=== PATIENT | female | born 2000 | race Caucasian/White ===

== ENCOUNTER 2019-09-21 14:01 | Emergency (ER) | payer OTHER ==
[2019-09-21 14:23] VITALS: BMI 24.7
[2019-09-21] MEDS ORDERED: SODIUM CHLORIDE 1,000 ML IV STA (14:25)
--- NOTE | 2019-09-21 14:25 | PDOC ---
Rapid Medical Evaluation Time Seen by Provider: 09/21/19 14:19 Medical Evaluation: 09/21/19 14:20 Pt presents for evaluation after having a syncopal episode. She states she has been feeling weak today and then she passed out in the shower. Pt currently having a miscarriage had D&C 6 days ago. Pt did not hit her head, family member caught her. Also complaining of throat pain and abdominal pain. Exam: Throat non-erythematous, tenderness to palpation of the lower abdomen without focal findings Orders: labs, UA, EKG, IVF Pt to proceed to the ER for further evaluation Discharge Disposition - Diagnosis Syncope Qualifiers: Syncope type: unspecified Qualified Code(s): R55 - Syncope and collapse - Referrals - Patient Instructions - Post Discharge Activity
[2019-09-21 15:14] LABS: BASO % 0.4 % (0-2.0); EOS % 2.1 % (0-4.5); HEMATOCRIT 40.1 % (32.4-45.2); HEMOGLOBIN 13.3 GM/dL (10.7-15.3); LYMPH % 7.5 % (8-40); MCH 27.4 pg (25.7-33.7); MCHC 33.1 g/dl (32.0-36.0); MEAN CELL VOLUME 82.8 fl (80-96); MEAN PLT VOLUME 9.3 fl (7.5-11.1); MONO % 6.8 % (3.8-10.2); NEUT % 83.2 % (42.8-82.8); PLATELET COUNT 207 K/MM3 (134-434); RBC 4.84 M/mm3 (3.60-5.2); RDW 12.5 % (11.6-15.6); WHITE BLOOD COUNT 17.7 K/mm3 (4.0-10.0)
[2019-09-21 15:20] LABS: EPI CELLS 1.5 /HPF (0-5/HPF); HYALINE CASTS 0 /lpf (0-8); PH,URINE 7.5 (5.0-8.0); URINE APPEARANCE CLEAR; URINE BILIRUBIN NEGATIVE (NEGATIVE); URINE COLOR YELLOW; URINE GLUCOSE (UA) NEGATIVE (NEGATIVE); URINE KETONE NEGATIVE (NEGATIVE); URINE LEUK ESTERASE 1+ (NEGATIVE); URINE NITRITE NEGATIVE (NEGATIVE); URINE PROTEIN NEGATIVE (NEGATIVE); URINE RBC 5 /hpf (0-4); URINE WBC 7 /hpf (0-5)
[2019-09-21] MEDS ORDERED: ACETAMINOPHEN 500 MG TABLET (FP) PO ONE (15:50)
--- NOTE | 2019-09-21 15:55 | PDOC ---
History of Present Illness - General Chief Complaint: Weakness Stated Complaint: SYNCOPE Time Seen by Provider: 09/21/19 14:19 - History of Present Illness Initial Comments: Malini Bravo is a 19yo woman with a PMH of asthma, 6 days s/p D&C 2/2 miscarriage at 3mo gestation who presents to the ED after fainting at home today. She states that she had been feeling generally unwell since yesterday with generalized weakness, malaise, nasal congestion, sore throat, and cough. She did not eat today. She went to take a hot shower, and while she was in the shower started to feel that she was going to faint. She alerted her boyfriend, who came and caught her before she fell to the ground. She did not hit her head or sustain any other injury. Her boyfriend splashed her face with cold water, and she woke up and felt at her baseline immediately. Ms Bravo reports that she remembers her boyfriend trying to talk to her but "only heard buzzing" and could not understand him. She came directly to the hospital after waking for additional evaluation. Ms Bravo reports that she has fainted multiple times in the past and was evaluated in the ED at [facility]. She says they always "tell her that nothing is wrong with her" and send her home. She says that every episode of fainting has been when standing up or otherwise changing position. She is not sure whether she was given a reason for the previous fainting episodes. Currently, she reports that she has also been feeling unwell. She has felt weak and has had cough, nasal congestion, and sore throat since yesterday. She also endorses poor PO intake today as she has not been hungry and due to the sore throat. She is concerned that she has strep. She took Nyquil last night for these symptoms. She additionally reports that she has mild suprapubic pain, improved since her D&C, with slight vaginal spotting. Both the pain and bleeding have decreased over the past few days. She says she was told this was expected but that the pain has been bothering her because "they didn't prescribe anything" for her to take at home. She did buy Advil but only took it 1 time yesterday morning. Ms Bravo denies any fevers/chills, nausea, vomiting, change in bowel habits, or urinary symptoms. She endorses frequent nighttime cough, but says this is chronic; she no longer has any asthma medications at home. Past History - Past Medical History Allergies/Adverse Reactions: Allergies Allergy/AdvReac Type Severity Reaction Status Date / Time [place] Allergy Verified 09/21/19 14:20 Home Medications: Ambulatory Orders Albuterol Sulfate Inhaler - [Ventolin HFA Inhaler -] 1 - 2 inh PO Q4H PRN #1 inhaler 09/21/19 Benzocaine/Menthol [Cepacol Sore Throat Lozenge] 1 each MM Q4H PRN #1 box Ibuprofen 600 mg PO Q6H PRN #30 tablet 09/21/19 Inhaler, Assist Devices [Space Chamber Plus] 1 each MC UTDICT #1 spacer COPD: No Other medical history: miscarriage with d/c a week ago - Psycho Social/Smoking Cessation Hx Smoking History: Never smoked Hx Alcohol Use: No Drug/Substance Use Hx: Yes (marijuana) Review of Systems - Review of Systems Comments:: General: No fevers, no chills, no weight or appetite change, + malaise HEENT: No changes in vision, no changes in hearing, + congestion, + sore throat CV: No chest pain, no palpitations, no LE edema Pulm: No SOB, + cough, + wheezing GI: No nausea or vomiting, no change in bowel habits, no melena : No frequency, no urgency, no dysuria. +Suprapubic pain Musc: No back pain, no joint swelling, no recent injury Skin: No rash, no lesions, no erythema Endo: No excessive thirst, no heat/cold intolerance Heme: No unusual bruising or bleeding, no swollen glands Neuro: No syncope, no numbness/tingling, no focal weakness Vasc: No claudication Psych: No recent change in mood, no SI or HI *Physical Exam - Vital Signs Last Vital Signs Temp Pulse Resp BP Pulse Ox 99.6 F 91 H 16 108/62 99 09/21/19 14:20 09/21/19 14:20 09/21/19 14:20 09/21/19 14:20 09/21/19 14:20 - Physical Exam General: Comfortable, no acute distress HEENT: Atraumatic, PERRL, EOMI, MMM, voice normal, normal neck ROM Cards: RRR, no murmur appreciated Pulm: Comfortable on room air, clear to auscultation bilaterally Abd: Soft, nondistended. Minimal suprapubic TTP with deep palpation, no rigidity or guarding. Ext: Atraumatic. No LE edema. ROM intact. WWP Skin: Normal color, no rashes or lesions Neuro: A&Ox3, CN grossly intact, normal speech, motor/sensory grossly intact and symmetric. No focal deficits. Psych: Mood appropriate to situation ED Treatment Course - LABORATORY CBC & Chemistry Diagram: 09/21/19 14:43 09/21/19 14:46 - ADDITIONAL ORDERS Additional order review: Laboratory Results 09/21/19 14:43 Urine Color Yellow Urine Appearance Clear Urine pH 7.5 Ur Specific [place] 1.010 Urine Protein Negative Urine Glucose (UA) Negative Urine Ketones Negative Urine Blood 2+ H Urine Nitrite Negative Urine Bilirubin Negative Urine Urobilinogen 1.0 Ur Leukocyte Esterase 1+ H Urine WBC (Auto) 7 Urine RBC (Auto) 5 Urine Casts (Auto) 0 U Epithel Cells (Auto) 1.5 Urine Bacteria (Auto) 58.0 09/21/19 14:43 RBC 4.84 MCV 82.8 MCHC 33.1 RDW 12.5 MPV 9.3 Neutrophils % 83.2 H Lymphocytes % 7.5 L Monocytes % 6.8 Eosinophils % 2.1 Basophils % 0.4 Medical Decision Making - Medical Decision Making 09/21/19 15:52 Malini Bravo is a 19yo woman with a PMH of asthma, 6 days s/p D&C 2/2 miscarriage at 3mo gestation who presents to the ED after fainting at home today while in a hot shower. She reports a history of several fainting episodes , reportedly with negative workup at [facility]. She additionally reports generalized malaise, weakness, cough, sore throat, and poor PO intake since yesterday as well as improving abdominal pain and vaginal spotting since her D& C. - Unclear whether pt actually fainted as she states she was aware of someone trying to talk to her. If true syncope, most likely orthostatic vs vasovagal. Pt reports poor PO intake due to feeling unwell and had recent procedure, also reports that she was in hot shower and has h/o previous fainting when standing up. - Positive orthostatics on exam w/ increase in HR from 80 to 120, BP decrease from 106/68 to 80/61 when changing from laying supine to standing - Ddx also includes anemia (iron deficiency, acute blood loss). No SOB or pleuritic pain suggesting PE. No BRENNER or neuro symptoms suggesting neurological cause. - Pt denies continued vaginal bleeding after D&C but continued pain. Elevated oral temp, may be febrile (declines rectal temp). Low suspicion for retained products or endometritis but given continued pain will send for TVUS - Generalized weakness may be due to anemia, but suspect influenza or flu-like illness given other respiratory symptoms and elevated temp. Flu test sent as pt has h/o asthma - IVF ordered in [facility]. Pt declines IV placement. Will give PO fluids - Acetaminophen for pain - CBC, CMP, UA, UCx. Very low suspicion for strep pharyngitis as pt has normal pharyngeal exam but rapid strep sent from [facility]. Pending 09/21/19 16:35 - Labs reviewed. No concerning abnormalities - Pt requesting IV fluids as she states that drinking hurts her throat. 18g IV placed in LAC by me. - Plan to send for US to evaluate for retained products following D&C though low suspicion as pt states pain has significantly improved since the procedure, and she now has minimal spotting. 09/21/19 17:06 - US completed, reviewed in ED. No retained products visualized, but radiology report pending 09/21/19 18:13 - US negative for retained products - Pt feeling improved - Will recheck orthostatics, plan to d/c home if orthostatic hypotension resolved - Discussed home care at length with pt. Per request, will give prescription for ibuprofen, benzocaine lozenges, albuterol. Advised that she needs a PMD, will give contact information for [facility]. 09/21/19 19:03 - Signed out to Dr Floyd for the remainder of her ED care Discussed with Dr Roxanna Byrd PGY2 Discharge - Discharge Information Problems reviewed: Yes Clinical Impression/Diagnosis: Syncope Qualifiers: Syncope type: unspecified Qualified Code(s): R55 - Syncope and collapse Condition: Stable - Additional Discharge Information Prescriptions: Albuterol Sulfate Inhaler - [Ventolin HFA Inhaler -] 1 - 2 inh PO Q4H PRN #1 inhaler PRN Reason: Asthma Benzocaine/Menthol [Cepacol Sore Throat Lozenge] 1 each MM Q4H PRN #1 box PRN Reason: Sore Throat Ibuprofen 600 mg PO Q6H PRN #30 tablet PRN Reason: Pain Inhaler, Assist Devices [Space Chamber Plus] 1 each UTDICT #1 spacer - Follow up/Referral Referrals: [facility] at [place] [Provider Group] - Patient Discharge Instructions Patient Printed Discharge Instructions: DI for Viral Upper Respiratory Infection -- Adult Additional Instructions: Discharge Instructions: You were seen in the emergency department for cough, sore throat, and weakness. You had strep and influenza tests sent that were negative. Your symptoms are most likely caused by a viral infection such as the common cold. You should feel better within a week without any additional treatment. You also had an episode of fainting. This is probably due to low blood pressure caused by mild dehydration. Home Care and Follow Up: - Make sure you are drinking plenty of fluids while you are sick. Increase your normal fluid intake. It is OK if you do not feel like eating as long as you are staying well hydrated. Water, pedialyte, soup, juice, popsicles, applesauce, jello, or any other fluids are good choices. - You have been prescribed ibuprofen 600mg that can be taken every 6 hours if needed for pain (abdominal or sore throat). This is the same medication that is in Advil or Motrin. - You may also take acetaminophen (Tylenol) 650-1000mg every 6-8 hours for continued pain. - Consider placing a humidifier in your room overnight to help relieve congestion and reduce drying of your nose and mouth. - Use throat lozenges (cough drops) for sore throat or cough. These have been prescribed, and you can use them every 4 hours. You can buy more at any pharmacy off the shelf. - If you use additional cold medications, make sure they do not contain medicines you are already taking such as acetaminophen or ibuprofen - You should feel better within a week, though cough can sometimes last longer. If you are not feeling better in a week, follow up with your primary doctor. If you need to see a new doctor, you have been referred to the [facility]. - Seek immediate care if you have worsening symptoms, you are unable to stay hydrated, you develop high fevers over 104F that do not come down with medication, or you have any other medical emergency. - Post Discharge Activity
[2019-09-21 16:00] LABS: ALBUMIN 3.9 g/dl (3.4-5.0); BILIRUBIN,TOTAL 0.9 mg/dL (0.2-1); BLOOD UREA NITROGEN 8.3 mg/dL (7-18); CREATININE 0.6 mg/dL (0.55-1.3); POTASSIUM 3.8 mmol/L (3.5-5.1); TOT PROT 7.3 g/dl (6.4-8.2)
[2019-09-21] MEDS ORDERED: ACETAMINOPHEN 500 MG TABLET (FP) ONE (16:06)
--- NOTE | 2019-09-21 16:17 | PDOC ---
Documentation entered by Zohra Martinez SCRIBE, acting as scribe for Martin Mcknight MD. Martin Mcknight MD: This documentation has been prepared by the Juan covarrubias Xhesika, SCRIBE, under my direction and personally reviewed by me in its entirety. I confirm that the documentation accurately reflects all work, treatment, procedures, and medical decision making performed by me. Attending Attestation - Resident Resident Name: RochellePrudence - ED Attending Attestation I have performed the following: I have examined & evaluated the patient, The case was reviewed & discussed with the resident, I agree w/resident's findings & plan, Exceptions are as noted - HPI HPI: 09/21/19 15:42 The patient is a 19 year old female with a significant PMH of asthma and iron deficiency anemia who presents to the emergency department s/p syncopal episode. Pt states she recently had a miscarriage and had D&C 6 days ago at [facility]. Pt denies any vaginal bleeding but endorses lower abdominal cramps. Pt also reports 2 days of sore throat, cough, congestion and generalized malaise. Today, the patient was taking a hot shower when she began to feel faint. Her boyfriend caught her before she hit the ground. Pt denies hitting her head. Boyfriend at bedside states he threw cold water on her face, and the patient returned to baseline. The patient denies chest pain, shortness of breath, headache and dizziness. Denies fever, chills, nausea, vomiting, diarrhea and constipation. Allergies: NKDA - Physicial Exam PE: 09/21/19 15:43 GENERAL: Awake, alert, and fully oriented, in no acute distress. HEAD: No signs of trauma EYES: PERRLA, EOMI, sclera anicteric, conjunctiva clear ENT: Auricles normal inspection, hearing grossly normal, nares patent, oropharynx clear without exudates. Moist mucosa NECK: Nontender, no stepoffs, Normal ROM, supple, no lymphadenopathy, JVD, or masses LUNGS: Breath sounds equal, clear to auscultation bilaterally. No wheezes, and no crackles HEART: Regular rate and rhythm, normal S1 and S2, no murmurs, rubs or gallops ABDOMEN: Soft, nontender, normoactive bowel sounds. No guarding, no rebound. No masses EXTREMITIES: Normal range of motion, no edema. No clubbing or cyanosis. No cords, erythema, or tenderness NEUROLOGICAL: Cranial nerves II through XII intact. 5/5 strength and sensation in all extremities, Normal speech, normal gait, normal cerebellar function SKIN: Warm, Dry, normal turgor, no rashes or lesions noted. - Medical Decision Making 09/21/19 16:20 19 F with syncopal episode. Likely vasovagal vs orthostatic in the setting of URI-like symptoms. Pt with borderline temp in ED. Will evaluate for retained POCs, though pt likely has flu or other viral syndrome. - Labs - Flu swab - TVUS - Fluids, tylenol 09/21/19 17:53 Labs notable for WBC 17, otherwise unremarkable TVUS without evidence of retained POCs Flu swab negative 09/21/19 18:29 Pt reassessed - continues to be orthostatic Will give additional 2L NS IV and reassess 09/21/19 18:43 Pt signed out to oncoming attending Dr. Mercer at 7PM, pending additional fluids and re-evaluation of vitals
--- NOTE | 2019-09-21 19:11 | PDOC ---
*Physical Exam - Vital Signs Last Vital Signs Temp Pulse Resp BP Pulse Ox 99.6 F 96 H 16 105/42 L 99 09/21/19 14:20 09/21/19 18:20 09/21/19 14:20 09/21/19 18:20 09/21/19 14:20 ED Treatment Course - LABORATORY CBC & Chemistry Diagram: 09/21/19 14:43 09/21/19 14:46 - ADDITIONAL ORDERS Additional order review: Laboratory Results 09/21/19 09/21/19 09/21/19 14:46 14:43 14:43 Sodium 136 Potassium 3.8 Chloride 102 Carbon Dioxide 25 Anion Gap 9 BUN 8.3 Creatinine 0.6 Est GFR (CKD-EPI)AfAm 152.08 Est GFR (CKD-EPI)NonAf 131.21 Random Glucose 74 Calcium 9.0 Total Bilirubin 0.9 AST 11 L ALT 23 Alkaline Phosphatase 84 Total Protein 7.3 Albumin 3.9 Urine Color Yellow Urine Appearance Clear Urine pH 7.5 Ur Specific [place] 1.010 Urine Protein Negative Urine Glucose (UA) Negative Urine Ketones Negative Urine Blood 2+ H Urine Nitrite Negative Urine Bilirubin Negative Urine Urobilinogen 1.0 Ur Leukocyte Esterase 1+ H Urine WBC (Auto) 7 Urine RBC (Auto) 5 Urine Casts (Auto) 0 U Epithel Cells (Auto) 1.5 Urine Bacteria (Auto) 58.0 Blood Type B POSITIVE Antibody Screen Negative 09/21/19 14:43 RBC 4.84 MCV 82.8 MCHC 33.1 RDW 12.5 MPV 9.3 Neutrophils % 83.2 H Lymphocytes % 7.5 L Monocytes % 6.8 Eosinophils % 2.1 Basophils % 0.4 - Medications Given in the ED: ED Medications Discontinued Medications Generic Name Dose Route Start Last Admin Trade Name Freq PRN Reason Stop Dose Admin Acetaminophen 1,000 mg 09/21/19 15:50 09/21/19 16:08 Tylenol - PO 09/21/19 15:51 1,000 mg ONCE ONE Administration Sodium Chloride 1,000 mls @ 1,000 mls/hr 09/21/19 14:25 09/21/19 16:08 Normal Saline - IV 09/21/19 15:24 Not Given ASDIR STA Medical Decision Making - Medical Decision Making 09/21/19 19:00 Pt received on sign out from Dr. Byrd. Plan to d/c home after completion of fluids and reassessment of orthostatics. 09/21/19 19:46 Pt s/p D&C 6 days ago. Epigastric TTP on reassessment. Plan to obtain sepsis work up and CT abd/pelv w/ contrast. 09/21/19 20:13 Pt urine positive. Likely due to the fact that she is 6 days s/p D and C. States that she has not had intercourse since the D&C. Will obtain beta hcg quant and sign release for CT abd/pelv. TVUS does not show any . 09/21/19 21:22 CT abd/pelv shows no acute intra abdominal pathology. 09/21/19 22:24 Labs reviewed. Pt reassessed. Pt stable for discharge. All questions answered. Return precautions given. Pt verbalized understanding and agreement with plan. F /u PCP. Laboratory Tests 09/21/19 09/21/19 09/21/19 14:43 14:43 14:43 WBC 17.7 H RBC 4.84 Hgb 13.3 Hct 40.1 MCV 82.8 MCH 27.4 MCHC 33.1 RDW 12.5 Plt Count 207 MPV 9.3 Absolute Neuts (auto) 14.7 H Neutrophils % 83.2 H Lymphocytes % 7.5 L Monocytes % 6.8 Eosinophils % 2.1 Basophils % 0.4 Nucleated RBC % 0 Sodium Potassium Chloride Carbon Dioxide Anion Gap BUN Creatinine Est GFR (CKD-EPI)AfAm Est GFR (CKD-EPI)NonAf Random Glucose Lactic Acid Calcium Total Bilirubin AST ALT Alkaline Phosphatase Total Protein Albumin Beta HCG, Quant Serum , Qual Urine Color Urine Appearance Urine pH Ur Specific [place] Urine Protein Urine Glucose (UA) Urine Ketones Urine Blood Urine Nitrite Urine Bilirubin Urine Urobilinogen Ur Leukocyte Esterase Urine WBC (Auto) Urine RBC (Auto) Urine Casts (Auto) U Epithel Cells (Auto) Urine Bacteria (Auto) Influenza A (Rapid) Influenza B (Rapid) Group A Strep Rapid Negative Blood Type B POSITIVE Antibody Screen Negative 09/21/19 09/21/19 09/21/19 14:43 14:43 14:46 WBC RBC Hgb Hct MCV MCH MCHC RDW Plt Count MPV Absolute Neuts (auto) Neutrophils % Lymphocytes % Monocytes % Eosinophils % Basophils % Nucleated RBC % Sodium 136 Potassium 3.8 Chloride 102 Carbon Dioxide 25 Anion Gap 9 BUN 8.3 Creatinine 0.6 Est GFR (CKD-EPI)AfAm 152.08 Est GFR (CKD-EPI)NonAf 131.21 Random Glucose 74 Lactic Acid Calcium 9.0 Total Bilirubin 0.9 AST 11 L ALT 23 Alkaline Phosphatase 84 Total Protein 7.3 Albumin 3.9 Beta HCG, Quant 667.1 Serum , Qual Positive Urine Color Yellow Urine Appearance Clear Urine pH 7.5 Ur Specific [place] 1.010 Urine Protein Negative Urine Glucose (UA) Negative Urine Ketones Negative Urine Blood 2+ H Urine Nitrite Negative Urine Bilirubin Negative Urine Urobilinogen 1.0 Ur Leukocyte Esterase 1+ H Urine WBC (Auto) 7 Urine RBC (Auto) 5 Urine Casts (Auto) 0 U Epithel Cells (Auto) 1.5 Urine Bacteria (Auto) 58.0 Influenza A (Rapid) Influenza B (Rapid) Group A Strep Rapid Blood Type Antibody Screen 09/21/19 09/21/19 16:00 20:20 WBC RBC Hgb Hct MCV MCH MCHC RDW Plt Count MPV Absolute Neuts (auto) Neutrophils % Lymphocytes % Monocytes % Eosinophils % Basophils % Nucleated RBC % Sodium Potassium Chloride Carbon Dioxide Anion Gap BUN Creatinine Est GFR (CKD-EPI)AfAm Est GFR (CKD-EPI)NonAf Random Glucose Lactic Acid 1.7 Calcium Total Bilirubin AST ALT Alkaline Phosphatase Total Protein Albumin Beta HCG, Quant Serum , Qual Urine Color Urine Appearance Urine pH Ur Specific [place] Urine Protein Urine Glucose (UA) Urine Ketones Urine Blood Urine Nitrite Urine Bilirubin Urine Urobilinogen Ur Leukocyte Esterase Urine WBC (Auto) Urine RBC (Auto) Urine Casts (Auto) U Epithel Cells (Auto) Urine Bacteria (Auto) Influenza A (Rapid) Negative Influenza B (Rapid) Negative Group A Strep Rapid Blood Type Antibody Screen Discharge - Discharge Information Problems reviewed: Yes Clinical Impression/Diagnosis: Syncope Qualifiers: Syncope type: unspecified Qualified Code(s): R55 - Syncope and collapse Condition: Stable - Admission No - Additional Discharge Information Prescriptions: Albuterol Sulfate Inhaler - [Ventolin HFA Inhaler -] 1 - 2 inh PO Q4H PRN #1 inhaler PRN Reason: Asthma Benzocaine/Menthol [Cepacol Sore Throat Lozenge] 1 each MM Q4H PRN #1 box PRN Reason: Sore Throat Ibuprofen 600 mg PO Q6H PRN #30 tablet PRN Reason: Pain Inhaler, Assist Devices [Space Chamber Plus] 1 each UTDICT #1 spacer - Follow up/Referral Referrals: [facility] [place] [Provider Group] - Patient Discharge Instructions Patient Printed Discharge Instructions: DI for Viral Upper Respiratory Infection -- Adult Additional Instructions: Discharge Instructions: You were seen in the emergency department for cough, sore throat, and weakness. You had strep and influenza tests sent that were negative. Your symptoms are most likely caused by a viral infection such as the common cold. You should feel better within a week without any additional treatment. You also had an episode of fainting. This is probably due to low blood pressure caused by mild dehydration. Home Care and Follow Up: - Make sure you are drinking plenty of fluids while you are sick. Increase your normal fluid intake. It is OK if you do not feel like eating as long as you are staying well hydrated. Water, pedialyte, soup, juice, popsicles, applesauce, jello, or any other fluids are good choices. - You have been prescribed ibuprofen 600mg that can be taken every 6 hours if needed for pain (abdominal or sore throat). This is the same medication that is in Advil or Motrin. - You may also take acetaminophen (Tylenol) 650-1000mg every 6-8 hours for continued pain. - Consider placing a humidifier in your room overnight to help relieve congestion and reduce drying of your nose and mouth. - Use throat lozenges (cough drops) for sore throat or cough. These have been prescribed, and you can use them every 4 hours. You can buy more at any pharmacy off the shelf. - If you use additional cold medications, make sure they do not contain medicines you are already taking such as acetaminophen or ibuprofen - You should feel better within a week, though cough can sometimes last longer. If you are not feeling better in a week, follow up with your primary doctor. If you need to see a new doctor, you have been referred to the [facility]. - Seek immediate care if you have worsening symptoms, you are unable to stay hydrated, you develop high fevers over 104F that do not come down with medication, or you have any other medical emergency. - Post Discharge Activity
[2019-09-21 21:58] VITALS: BP 110/65; PULSE 89; TEMP 98.5
--- NOTE | 2019-09-22 14:27 | EKG ---
Test Reason : Blood Pressure : / mmHG Vent. Rate : 084 BPM Atrial Rate : 084 BPM P-R Int : 136 ms QRS Dur : 074 ms QT Int : 334 ms P-R-T Axes : 034 074 031 degrees QTc Int : 394 ms NORMAL SINUS RHYTHM NORMAL ECG NO PREVIOUS ECGS AVAILABLE Confirmed by FRANK HINTON MD ([id number]) on 09/22/2019 2:27:25 PM Referred By: Confirmed By:FRANK HINTON MD
== END 2019-09-21 22:23 | disposition home or self-care (01) ==
LOC: JER 14:01
DX: R55 Syncope and collapse (principal); Z91.018 Allergy to other foods; J45.909 Unspecified asthma, uncomplicated
CPT/HCPCS: 36415; 71045-TC-FY; 74177-TC; 76830-TC; 80053; 81003; 83605; 84702; 84703; 85025; 86850; 86900; 86901; 87040; 87070; 87086; 87804; 87880; 93005; 93010; 99284-25; Q9967

== ENCOUNTER 2020-03-22 16:08 | Emergency (ER) | payer OTHER ==
[2020-03-22 16:16] VITALS: BP 117/75; PULSE 75; TEMP 97.9; BMI 25.5
[2020-03-22] MEDS ORDERED: ACETAMINOPHEN 325 MG TABLET (FP) PO ONE (16:32)
[2020-03-22] MEDS ORDERED: ACETAMINOPHEN 325 MG TABLET (FP) ONE (16:36)
--- NOTE | 2020-03-22 16:40 | PDOC ---
History of Present Illness - General Chief Complaint: Back Pain Stated Complaint: FALLS- BACK PAIN Time Seen by Provider: 03/22/20 16:16 History Source: Patient Exam Limitations: No Limitations Past History - Travel History Traveled outside of the country in the last 30 days: No Close contact w/someone who was outside of country & ill: No - Medical History Allergies/Adverse Reactions: Allergies Allergy/AdvReac Type Severity Reaction Status Date / Time jacinto Allergy Verified 03/22/20 16:18 Home Medications: Ambulatory Orders Albuterol Sulfate Inhaler - [Ventolin HFA Inhaler -] 1 - 2 inh PO Q4H PRN #1 inhaler 09/21/19 Benzocaine/Menthol [Cepacol Sore Throat Lozenge] 1 each MM Q4H PRN #1 box 09/21/19 Ibuprofen 600 mg PO Q6H PRN #30 tablet 09/21/19 Inhaler, Assist Devices [Space Chamber Plus] 1 each MC UTDICT #1 spacer 09/21/19 Ibuprofen 600 mg PO Q6H #30 tablet 03/22/20 Methocarbamol [Robaxin -] 500 mg PO BID #14 tablet 03/22/20 traMADol HCL [Ultram -] 50 mg PO Q8H PRN #10 tablet MDD 3 03/22/20 COPD: No - Reproductive History Is Patient Now?: (unknown) - Psycho-Social/Smoking History Smoking History: Never smoked Have you smoked in the past 12 months: No Information on smoking cessation initiated: No - Substance Abuse Hx (Audit-C & DAST Scrn) How often the patient has a drink containing alcohol: Never Score: In Men: 4 or > Positive; In Women: 3 or > Positive: 0 Screen Result (Pos requires Nsg. Audit-10AR): Negative In the last yr the pt used illegal drug/Rx for NonMed reason: No Score: Yes response is considered Positive: 0 Screen Result (Positive result requires Nsg. DAST-10): Negative Review of Systems - Review of Systems Able to Perform ROS?: Yes Comments:: 03/22/20 19:19 CONSTITUTIONAL: Absent: fever, chills, diaphoresis, generalized weakness, malaise, loss of appetite HEENT: Absent: rhinorrhea, nasal congestion, throat pain, throat swelling, difficulty swallowing, mouth swelling, ear pain, eye pain, visual Changes CARDIOVASCULAR: Absent: chest pain, loss of consciousness, palpitations, irregular heart rate, peripheral edema RESPIRATORY: Absent: cough, shortness of breath, dyspnea with exertion, orthopnea, wheezing, stridor, hemoptysis GASTROINTESTINAL: Absent: abdominal pain, abdominal distension, nausea, vomiting, diarrhea, constipation, melena, hematochezia GENITOURINARY: Absent: dysuria, frequency, urgency, hesitancy, hematuria, flank pain, genital pain MUSCULOSKELETAL: Present: Right upper back pain absent: myalgia, arthralgia, joint swelling SKIN: Absent: rash, itching, pallor HEMATOLOGIC/IMMUNOLOGIC: Absent: easy bleeding, easy bruising, lymphadenopathy, frequent infections ENDOCRINE: Absent: unexplained weight gain, unexplained weight loss, heat intolerance, cold intolerance NEUROLOGIC: Absent: headache, focal weakness or paresthesias, dizziness, unsteady gait, seizure, mental status changes, bladder or bowel incontinence PSYCHIATRIC: Absent: anxiety, depression, suicidal or homicidal ideation, hallucinations. Is the patient limited Cymra[place] proficient: No *Physical Exam - Vital Signs Last Vital Signs Temp Pulse Resp BP Pulse Ox 97.9 F 75 18 117/75 100 03/22/20 16:10 03/22/20 16:10 03/22/20 16:10 03/22/20 16:10 03/22/20 16:10 - Physical Exam 03/22/20 19:20 GENERAL: Well developed, well nourished. Awake and alert. No acute distress. HEENT: Normocephalic, atraumatic. PERRLA, EOMI. No conjunctival pallor. Sclera are non- icteric. Moist mucous membranes. Oropharynx is clear. NECK: Supple. Full ROM. No JVD. Carotid pulses 2+ and symmetric, without bruits. No thyromegaly. No lymphadenopathy. CARDIOVASCULAR: Regular rate and rhythm. No murmurs, rubs, or gallops. Distal pulses are 2+ and symmetric. PULMONARY: No evidence of respiratory distress. Lungs clear to auscultation bilaterally. No wheezing, rales or rhonchi. ABDOMINAL: Soft. Non-tender. Non-distended. No rebound or guarding. No organomegaly. Normoactive bowel sounds. MUSCULOSKELETAL TTP along R ribs 6-8 along the thoracic spine. Normal range of motion at all joints. No CVA tenderness. EXTREMITIES: No cyanosis. No clubbing. No edema. No calf tenderness. SKIN: Warm and dry. Normal capillary refill. No rashes. No jaundice. NEUROLOGICAL: Alert, awake, appropriate. Cranial nerves 2-12 intact. No deficits to light touch and temperature in face, upper extremities and lower extremities. No motor deficits in the in face, upper extremities and lower extremities. Normoreflexic in the upper and lower extremities. Normal speech. Toes are down-going bilaterally. Gait is normal without ataxia. PSYCHIATRIC: Cooperative. Good eye contact. Appropriate mood and affect. Medical Decision Making - Medical Decision Making 03/22/20 19:21 The patient is a 19-year-old female no past medical history presents the ER with right-sided back pain for 1 week. She states that her pain started after she jumped into a friend's pool and landed on her upper back. She states that her right upper back hit the edge of the pool. She states since then the pain has i ncreased despite taking Tylenol and Motrin. Denies difficulty breathing, shortness of breath, chest pain, nausea, vomiting and urinary symptoms. A/P: Rib fracture On exam patient is tender to palpation of ribs 6 through 8 on the right side along the thoracic spine. No bruising noted. No CVA tenderness/abdominal tenderness on exam. Thoracic spine x-ray reveals fractured R ribs 6 and 7. Lungs intact. No pneumothorax identified Incentive spirometer given, pain medication given We will have patient follow-up with her primary care doctor. Strict return precautions given. Discharge home I discussed the physical exam findings, ancillary test results and final diagnoses with the patient. I answered all of the patient's questions. The patient was satisfied with the care received and felt comfortable with the discharge plan and treatment plan. The Patient agrees to follow up with the primary care physician/specialist within 24-72 hours. Return precautions were given. Discharge - Discharge Information Problems reviewed: Yes Clinical Impression/Diagnosis: Rib fractures Qualifiers: Encounter type: initial encounter Rib fracture type: multiple ribs Fracture type: closed Laterality: right Qualified Code(s): S22.41XA - Multiple fractures of ribs, right side, initial encounter for closed fracture Condition: Stable Disposition: HOME - Admission No - Additional Discharge Information Prescriptions: Ibuprofen 600 mg PO Q6H #30 tablet Methocarbamol [Robaxin -] 500 mg PO BID #14 tablet traMADol HCL [Ultram -] 50 mg PO Q8H PRN #10 tablet MDD 3 PRN Reason: Pain - Follow up/Referral Referrals: [facility] [place] [facility] [place] [Provider Group] - Patient Discharge Instructions Patient Printed Discharge Instructions: DI for Rib Fracture Additional Instructions: You were seen for your back pain today. It is due to broken ribs. You have 2 broken ribs on the right side. Please use the incentive spirometer every hour. Try to blow a little bit higher every time. Take the ibuprofen 600 mg every 6 hours as needed for pain. You may take the tramadol as needed for breakthrough pain. Do not drink or drive after taking this medication as it may make you drowsy. You may also take the Robaxin twice a day. Do not take at the same time as tramadol. Do not drink or drive after taking this medication as it may make you drowsy. Follow-up with your primary care doctor this week. If you do not have one, one has been referred to you. Return to the ER for any new or worsening symptoms including difficulty breathing, fever, increasing pain despite treatment or if you have any changes. - Post Discharge Activity
[2020-03-22 17:37] LABS: EPI CELLS >36 /uL (0-25.1); HYALINE CASTS 2 /uL (0-3.1); URINE APPEARANCE CLEAR; URINE BACTERIA 909 /uL (0-1359); URINE BILIRUBIN NEGATIVE (NEGATIVE); URINE COLOR YELLOW; URINE GLUCOSE (UA) NEGATIVE (NEGATIVE); URINE KETONE NEGATIVE (NEGATIVE); URINE LEUK ESTERASE 1+ (NEGATIVE); URINE NITRITE NEGATIVE (NEGATIVE); URINE PROTEIN NEGATIVE (NEGATIVE); URINE RBC 9 /uL (0-23.9); URINE WBC 82 /uL (0-25.8)
[2020-03-22] MEDS ORDERED: LIDOCAINE 5% TOPICAL PATCH TP ONE (18:03)
[2020-03-22] MEDS ORDERED: IBUPROFEN 600 MG TABLET (FP) PO ONE ×2 (18:03→18:08)
[2020-03-22] MEDS ORDERED: LIDOCAINE 5% TOPICAL PATCH ONE (18:08)
[2020-03-22] MEDS ORDERED: LIDOCAINE PATCH REMOVAL MC SCH (22:00)
== END 2020-03-22 20:20 | disposition home or self-care (01) ==
LOC: JERFT 16:08
DX: S22.41XS Multiple fractures of ribs, right side, sequela (principal)
CPT/HCPCS: 36415; 72070-TC-FY; 81003; 84702; 87077; 87086; 99284-25

== ENCOUNTER 2020-09-29 21:07 | Emergency (ER) | payer OTHER ==
[2020-09-29 21:29] VITALS: BP 121/59; PULSE 70; TEMP 98.1; BMI 24.0
[2020-09-29] MEDS ORDERED: DEXAMETHASONE LIQUID 0.5 MG/5 ML PO ONE (22:01)
[2020-09-29] MEDS ORDERED: DEXAMETHASONE SOD PHOSPHATE 10 MG/1 ML VIAL ONE (22:12)
== END 2020-09-29 22:57 | disposition home or self-care (01) ==
LOC: JER 21:07 → JERFT 21:07 → JER 22:57
DX: J02.9 Acute pharyngitis, unspecified (principal)
CPT/HCPCS: 87880; 99283-25

== ENCOUNTER 2021-02-11 21:34 | Emergency (ER) | payer OTHER ==
[2021-02-11 21:50] VITALS: BP 118/67; PULSE 61; TEMP 100.6; BMI 25.4
[2021-02-11] MEDS ORDERED: IBUPROFEN 600 MG TABLET (FP) PO ONE ×2 (22:25→22:46)
[2021-02-11] MEDS ORDERED: DEXAMETHASONE LIQUID 0.5 MG/5 ML PO ONE (22:25)
[2021-02-11] MEDS ORDERED: DEXAMETHASONE SOD PHOSPHATE 10 MG/1 ML VIAL ONE (22:46)
== END 2021-02-11 23:43 | disposition home or self-care (01) ==
LOC: JER 21:34
DX: J02.9 Acute pharyngitis, unspecified (principal); Z11.52 Encounter for screening for COVID-19
CPT/HCPCS: 99283-25

== ENCOUNTER 2021-10-27 17:21 | Emergency (ER) | payer OTHER ==
[2021-10-27 17:38] VITALS: BP 97/59; PULSE 67; TEMP 98; BMI 24.9
[2021-10-27 18:17] LABS: HCG,QUALITATIVE URINE Negative
[2021-10-27 18:18] LABS: EPI CELLS 10 /uL (0-25.1); HYALINE CASTS 4 /uL (0-3.1); PH,URINE 8.5 (5.0-8.0); URINE APPEARANCE CLOUDY; URINE BACTERIA >9,000 /uL (0-1359); URINE BILIRUBIN NEGATIVE (NEGATIVE); URINE COLOR YELLOW; URINE GLUCOSE (UA) NEGATIVE (NEGATIVE); URINE KETONE NEGATIVE (NEGATIVE); URINE LEUK ESTERASE 1+ (NEGATIVE); URINE NITRITE NEGATIVE (NEGATIVE); URINE PROTEIN 1+ (NEGATIVE); URINE RBC 1526 /uL (0-23.9); URINE UROBILINOGEN 0.2 mg/dL (0.2-1.0); URINE WBC 727 /uL (0-25.8)
== END 2021-10-27 18:41 | disposition home or self-care (01) ==
LOC: JER 17:21 → JERFT 17:21
DX: N39.0 Urinary tract infection, site not specified (principal)
CPT/HCPCS: 36415; 81003; 84703; 87086; 87186; 87491; 87591; 99283-25

== ENCOUNTER 2021-11-24 11:02 | Emergency (ER) | payer OTHER ==
[2021-11-24 11:13] VITALS: BP 120/60; PULSE 87; TEMP 97.5; BMI 27.4
[2021-11-24] MEDS ORDERED: KETOROLAC TROMETHAMINE 30 MG/1 ML VIAL IM ONE (12:26)
[2021-11-24] MEDS ORDERED: KETOROLAC TROMETHAMINE 30 MG/1 ML VIAL ONE (12:50)
== END 2021-11-24 12:57 | disposition home or self-care (01) ==
LOC: JERFT 11:02 → JER 11:02 → JERFT 12:57
PROC: 3E023GC Introduction of Other Therapeutic Substance into Muscle, Percutaneous Approach (ICD-10-PCS; principal; 2021-11-24)
DX: S93.402A Sprain of unspecified ligament of left ankle, initial encounter (principal); Y99.9 Unspecified external cause status
CPT/HCPCS: 73610-TC-LT-FY; 73630-TC-LT; 99284-25

== ENCOUNTER 2022-01-26 09:44 | Emergency (ER) | payer OTHER ==
[2022-01-26 09:52] VITALS: BP 103/57; PULSE 91; TEMP 98.8; BMI 26.1
[2022-01-26] MEDS ORDERED: ACETAMINOPHEN 325 MG TABLET (FP) PO ONE (11:01)
[2022-01-26] MEDS ORDERED: ACETAMINOPHEN 325 MG TABLET (FP) ONE (11:14)
[2022-01-26 12:07] LABS: THROAT:GRP A STREP NOT DETECTED (NOTDETECTED)
== END 2022-01-26 19:13 | disposition home or self-care (01) ==
LOC: JER 09:44
DX: R07.0 Pain in throat (principal)
CPT/HCPCS: 0241U-QW; 87651; 99283-25